=== PATIENT | female | born 1945 | race African-American/Black ===

== ENCOUNTER 2021-01-30 14:37 | Emergency (ER) | payer OTHER ==
[2021-01-30 14:56] VITALS: BMI 35.5
[2021-01-30 16:30] LABS: BASO % 1.3 % (0-2.0); EOS % 0.8 % (0-4.5); HEMATOCRIT 38.8 % (32.4-45.2); LYMPH % 54.4 % (8-40); MCH 29.1 pg (25.7-33.7); MCHC 33.4 g/dl (32.0-36.0); MEAN PLT VOLUME 8.9 fl (7.5-11.1); MONO % 16.1 % (3.8-10.2); NEUT % 27.4 % (42.8-82.8); PLATELET COUNT 224 10^3/uL (134-434); RBC 4.46 M/mm3 (3.60-5.2); RDW 13.4 % (11.6-15.6); WHITE BLOOD COUNT 3.2 K/mm3 (4.0-10.0)
[2021-01-30 16:49] LABS: ALBUMIN 3.6 g/dl (3.4-5.0); BLOOD UREA NITROGEN 12.9 mg/dL (7-18)
[2021-01-30 16:52] LABS: CREATININE 0.9 mg/dL (0.55-1.3)
[2021-01-30 16:54] LABS: BILIRUBIN,TOTAL 0.4 mg/dL (0.2-1); TOT PROT 7.3 g/dl (6.4-8.2)
[2021-01-30] MEDS ORDERED: CASIRIVIMAB (REGN10933) 600 MG, IMDEVIMAB (REGN10987) 600 MG in SODIUM CHLORIDE 100 ML IVPB ONE (17:00)
[2021-01-30 18:47] VITALS: TEMP 97.9
[2021-01-30 18:49] VITALS: BP 128/68; PULSE 66
== END 2021-01-30 19:07 | disposition home or self-care (01) ==
LOC: JCOVINFU 14:37
DX: U07.1 COVID-19 (principal)
CPT/HCPCS: 36415; 71046-TC-FY; 80053; 85025; 99284-25; M0243; Q0243